=== PATIENT | male | born 2005 | race Caucasian/White ===

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

== ENCOUNTER 2024-06-07 14:13 | Outpatient (CLI) | payer OTHER, SELFPAY ==
--- NOTE | 2024-06-07 14:33 | XRR_ITS ---
PROCEDURE INFORMATION: Exam: XR Lumbosacral Spine Exam date and time: 06/07/2024 2:50 PM Age: 19 years old Clinical indication: Dorslagia; Patient HX: No specific injury, pars defect in l-spine, worsening pain x3 weeks in lower back and left shoulder; Additional info: Dorsalgia TECHNIQUE: Imaging protocol: Radiologic exam of the lumbosacral spine. Views: 4 or 5 views. COMPARISON: No relevant prior studies available. FINDINGS: Bones/joints: Bilateral pars defects are noted at the L5-S1 level. I see no arthritic changes. No fracture or subluxation. Soft tissues: Unremarkable. XR/XR lumbar spine min 4V [id number] IMPRESSION: 1. No acute findings. 2. 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
--- NOTE | 2024-06-07 14:34 | XRR_ITS ---
PROCEDURE INFORMATION: Exam: XR Left Shoulder Exam date and time: 06/07/2024 2:50 PM Age: 19 years old Clinical indication: Patient HX: No specific injury, pars defect in l-spine, worsening pain x3 weeks in lower back and left shoulder; Additional info: Pain in left shoulder TECHNIQUE: Imaging protocol: Radiologic exam of the left shoulder. Views: 2 or more views. COMPARISON: CT cervical spin wo con* [id number] 01/11/2021 1:22 PM FINDINGS: Bones/joints: Normal. Soft tissues: Normal. XR/XR shoulder LT min 2V* [id number] IMPRESSION: No acute findings.
== END 2024-06-07 14:14 | disposition home or self-care (01) ==
PROVIDERS: PCP Nurse Practitioner Family; Visit Provider Nurse Practitioner Family
DX: M43.06 Spondylolysis, lumbar region (principal); M25.512 Pain in left shoulder
CPT/HCPCS: 72110; 73030